=== PATIENT | female | born 1990 | race Caucasian/White ===

== ENCOUNTER 2020-03-01 16:05 | Emergency (ER) | payer OTHER ==
[~2020-03-01] VITALS: Ht 177.8 cm; Wt 82.4 kg
--- NOTE | 2020-03-01 16:29 | NUR ---
Pt ambulated back to room. at bedside. Pt changed into gown and resting on gurney, NAD, denies additional needs, call light within reach, even and unlabored respirations. Pt crying and concerned regarding status. Urine walked to lab, Angel MARINELLI performed assessment and discussed plan of care. NAKITA.
--- NOTE | 2020-03-01 16:41 | NUR ---
Pt to radiology for US, pt in NAD, eyes open, even and unlabored respirations.
[2020-03-01 16:43] LABS: MICROSCOPIC INDICATED
[2020-03-01 16:43] LABS: BASOPHILS # (AUTO) 0.03 x10^3/uL (0-0.1); BASOPHILS % (AUTO) 0 % (0-1); EOSINOPHILS # (AUTO) 0.11 x10^3/uL (0-0.4); EOSINOPHILS % (AUTO) 1 % (1-7); LYMPHOCYTES # (AUTO) 2.78 x10^3/uL (1-3.4); LYMPHOCYTES % (AUTO) 28 % (22-44); MD NO; MEAN CORPUSCULAR HEMOGLOBIN 31.9 pg (27.0-34.8); MEAN CORPUSCULAR HGB CONC 33.8 g/dL (32.4-35.8); MEAN CORPUSCULAR VOLUME 94.4 fL (80-100); MONOCYTES % (AUTO) 6 % (2-9); NEUTROPHILS % (AUTO) 65 % (42-75); PLATELET COUNT 271 x10^3/uL (130-400); RED BLOOD COUNT 4.79 x10^6/uL (3.82-5.3); RED CELL DISTRIBUTION WIDTH 13.3 % (9.6-15.2)
[2020-03-01 16:50] LABS: CULTURE INDICATED? NO
[2020-03-01 16:55] LABS: ALBUMIN 4.4 g/dL (3.4-5.0); ANION GAP 4 mmol/L (5-15); CALCIUM 8.9 mg/dL (8.5-10.1); CHLORIDE 106 mmol/L (98-107); CREATININE 0.92 mg/dL (0.55-1.02)
--- NOTE | 2020-03-01 17:05 | NUR ---
Late Entry: Pt back from [facility], resting in [facility], at bedside, call light within reach, NAD, WCTM.
[2020-03-01 18:02] VITALS: BP 116/78
--- NOTE | 2020-03-01 18:10 | NUR ---
Pt DC, given miscarriage papers, candle and blanket pack. Pt verbalized DC understanding. Ambulated with a steady gait out of the ED.
== END 2020-03-01 18:11 | disposition home or self-care (01) ==
LOC: ED 17:28
DX: O03.9 Complete or unspecified spontaneous abortion without complication (principal); Z3A.09 9 weeks gestation of pregnancy
CPT/HCPCS: 36415; 76801; 80048; 81001; 82040; 84702; 85025; 86901; 99284

== ENCOUNTER 2021-01-03 10:14 | Outpatient (CLI) | payer OTHER ==
[~2021-01-03] VITALS: Ht 177.8 cm; Wt 94.0 kg
[2021-01-03] MEDS ORDERED: probiotic (10:21)
[2021-01-03] MEDS ORDERED: PREN1TAB60 PO (10:21)
[2021-01-03] MEDS ORDERED: acyclovir (10:22)
[2021-01-03 10:23] VITALS: BP 126/82
== END 2021-01-03 12:57 | disposition home or self-care (01) ==
LOC: LDOP 10:14
PROVIDERS: ATTEND Obstetrics & Gynecology Maternal & Fetal Medicine
DX: O36.8130 Decreased fetal movements, third trimester, not applicable or unspecified (principal); Z3A.40 40 weeks gestation of pregnancy
CPT/HCPCS: 59025; 76819